=== PATIENT | female | born 2000 ===

== ENCOUNTER 2021-03-18 09:59 | Emergency (ER) | payer SELFPAY ==
[2021-03-18 10:57] VITALS: BP 122/54
[2021-03-18] MEDS ORDERED: ACETAMINOPHEN 325 MG TAB PO ONE (11:34)
--- NOTE | 2021-03-18 11:39 | Emergency Department Report ---
- General Chief Complaint: Laceration/Recheck/Suture Stated Complaint: CUT TO MIDDLE FINGER Time Seen by Provider: 03/18/21 11:05 Source: patient Mode of arrival: Ambulatory Limitations: Language Barrier - History of Present Illness Initial Comments: 20 y/o female presents to the ER for left middle finger injury. patient reports that she had injured left middle finger on a machine on Thursday. Was send at [facility] and placed on antibiotics and pain medication. Patient reports that she had broken her finger and placed in a metal finger splint. She has not changes dressing since Thursday. Denies any fever or chills. No N/V. Onset/Timin -: days(s) - Related Data Allergies Allergy/AdvReac Type Severity Reaction Status Date / Time No Known Allergies Allergy Verified 03/18/21 10:57 ED Review of Systems ROS: Stated complaint: CUT TO MIDDLE FINGER Other details as noted in HPI ED Physical Exam - General Limitations: Language Barrier ED Course Vital Signs 03/18/21 10:56 Temperature 98.3 F Pulse Rate 68 Respiratory 18 Rate Blood Pressure 122/54 [Right] O2 Sat by Pulse 98 Oximetry ED Medical Decision Making - Medical Decision Making 20 y/o female presents to the ER for left middle finger injury. patient reports that she had injured left middle finger on a machine on Thursday. Was send at [facility] and placed on antibiotics and pain medication. Patient reports that she had broken her finger and placed in a metal finger splint. She has not changes dressing since Thursday. Denies any fever or chills. No N/V. Critical care attestation.: If time is entered above; I have spent that time in minutes in the direct care of this critically ill patient, excluding procedure time. ED Disposition Clinical Impression: Finger injury Disposition: HOME / SELF CARE / HOMELESS Is pt being admited?: No Does the pt Need Aspirin: No Condition: Stable
--- NOTE | 2021-03-18 13:06 | Emergency Department Report ---
- General Chief Complaint: Laceration/Recheck/Suture Stated Complaint: CUT TO MIDDLE FINGER Time Seen by Provider: 03/18/21 11:05 Source: patient Mode of arrival: Ambulatory Limitations: Language Barrier - History of Present Illness Initial Comments: 20-year-old female presents to the emergency room complaining of left middle finger injury from Thursday. Patient states that she had injured her finger on a machine. She states she went to [place] and was seen they told her she had broke it. She patient comes in with swelling tenderness. Patient states that they placed on antibiotics and pain medication. Patient does admit that she had not cleaned the bandage since Thursday as she misunderstood them. She also was placed in a finger splint for the fracture that she was told. Patient is accompanied by mother. Onset/Timin -: days(s) Extremity Location: Left: Hand (Middle finger) Context: accidental, power tool use Associated Symptoms: pain - Related Data Allergies Allergy/AdvReac Type Severity Reaction Status Date / Time No Known Allergies Allergy Verified 03/18/21 10:57 ED Review of Systems ROS: Stated complaint: CUT TO MIDDLE FINGER Other details as noted in HPI Comment: All other systems reviewed and negative ED Physical Exam - General Limitations: Language Barrier General appearance: alert, in no apparent distress - Head Head exam: Present: atraumatic, normocephalic - Eye Eye exam: Present: normal appearance - ENT ENT exam: Present: mucous membranes moist - Neck Neck exam: Present: normal inspection - Respiratory Respiratory exam: Present: normal lung sounds bilaterally. Absent: respiratory distress - Cardiovascular Cardiovascular Exam: Present: regular rate, normal rhythm. Absent: systolic murmur, diastolic murmur, rubs, gallop - GI/Abdominal GI/Abdominal exam: Present: soft, normal bowel sounds - Extremities Exam Extremities exam: Present: normal inspection - Back Exam Back exam: Present: normal inspection - Neurological Exam Neurological exam: Present: alert, oriented X3 - Psychiatric Psychiatric exam: Present: normal affect, normal mood - Skin Skin exam: Present: warm, dry, intact, normal color. Absent: rash - Expanded Skin Exam Expanded Type of lesion: Present: laceration Description of rash: Present: erythematous, swelling ED Course Vital Signs 03/18/21 10:56 Temperature 98.3 F Pulse Rate 68 Respiratory 18 Rate Blood Pressure 122/54 [Right] O2 Sat by Pulse 98 Oximetry ED Medical Decision Making - Medical Decision Making 20-year-old female presents to the emergency room complaining of left middle finger injury from Thursday. Patient states that she had injured her finger on a machine. She states she went to [place] and was seen they told her she had broke it. She patient comes in with swelling tenderness. Patient states that they placed on antibiotics and pain medication. Patient does admit that she had not cleaned the bandage since Thursday as she misunderstood them. She also was placed in a finger splint for the fracture that she was told. Patient is accompanied by mother. Wound was soaked in Betadine and water. It was cleaned. Dry bandage with Neosporin, Vaseline gauze nonadherent bandage placed on a splint and kiara taped. Patient is referred to her orthopedic provider for further evaluation. Patient is encouraged to continue with the antibiotics take pain medication as she needed and dressing changes daily. Critical care attestation.: If time is entered above; I have spent that time in minutes in the direct care of this critically ill patient, excluding procedure time. ED Disposition Clinical Impression: Finger injury Disposition: 01 HOME / SELF CARE / HOMELESS Is pt being admited?: No Does the pt Need Aspirin: No Condition: Stable Additional Instructions: Continue with your antibiotics and pain medication. Change dressing daily. You can use [id number] Neosporin cream or triple antibiotic. Follow-up with a hand specialist I have listed their information below. Referrals: ROBIN CORCORAN MD [Primary Care Provider] - 3-5 Days MARISA BORJAS MD [Staff Physician] - 3-5 Days Forms: Accompanied Note Time of Disposition: 12:56
== END 2021-03-18 13:40 | disposition home or self-care (01) ==
LOC: ED 09:59
DX: S69.92XD Unspecified injury of left wrist, hand and finger(s), subsequent encounter (principal); W26.8XXD Contact with other sharp object(s), not elsewhere classified, subsequent encounter
CPT/HCPCS: 99282